=== PATIENT | female | born 1945 | race African-American/Black ===

== ENCOUNTER 2017-01-02 09:01 | Inpatient (IN) | payer OTHER ==
--- NOTE | ~2017-01-02 | DS ---
Discharge Summary [address] [address] [place]. [address] NAME: MERARY DUMONT : 49 STATUS : DIS IN PAT#: [id number] AGE: 71 ADM/REG DATE : 01/02/17 MR#: [id number] REPORT SERV DATE: 01/05/17 DICTATED BY: JR. MOON WILLIAM JOHN DATE: 01/04/17 REPORT STATUS : Draft TRANSCRIBED BY: EMILE DATE: 01/04/17 ADMISSION DATE: 01/02/2017 DISCHARGE DATE: 01/04/2017 DISCHARGE DIAGNOSES: Include: 1. Chronic obstructive pulmonary disease with mild exacerbation. 2. Diabetes mellitus type 2 without long-term insulin use with peripheral neuropathy. 3. Obesity with body mass index of 38. 4. Hypertension. 5. Anxiety and depression. 6. Hyperlipidemia. 7. Chest pain, which the patient desired no further workup for. OPERATIONS, PROCEDURES, AND TREATMENTS: Include: 1. Chest x-ray done 01/02/2017, which was negative. 2. Blood cultures x2 done 01/02/2017 that were negative. DISCHARGE MEDICATIONS: Include: 1. Lipitor 20 mg orally daily. 2. Doxycycline 100 mg orally twice a day for five days. 3. Cymbalta 60 mg orally daily. 4. Neurontin 300 mg orally three times a day. 5. Zyrtec 10 mg orally daily. 6. Losartan 50 mg orally daily. 7. Omeprazole 20 mg orally daily. 8. Spiriva HandiHaler one puff daily. 9. Triamcinolone cream daily. 10.Metformin 500 b.i.d. 11.Prednisone 40 mg daily for two days and 20 for three days, then 10 for three days, then none. 12.Pulmicort Flexhaler two puffs twice a day. 13.Albuterol metered-dose inhaler two puffs every six hours as needed. 14.Bentyl 10 mg orally four times a day as needed. 15.Mobic 15 mg orally daily. 16.Zofran 4 mg twice a day as needed. 17.Percocet 7.5/325, one tablet twice a day as needed dispensing 6. 18.Combivent metered-dose inhaler two puffs every six hours. HOSPITAL COURSE: The patient was a pleasant 71-year-old female, presented to emergency room 01/02/2017 with cough and shortness of breath. The patient said she developed cough, shortness of breath, wheezing, and tightness with breathing about three days prior to admission. She says she uses her Spiriva and albuterol, but it did not help. She had some with substernal chest pain associated with it but this had resolved. On initial exam, her temperature is 98.3, heart rate 74, blood pressure 176/75. Exam was remarkable for diffuse expiratory wheezing in all lung faustin. Chest x-ray was clear. Laboratory was largely unremarkable with multiple troponins less than 0.02. Discharge Summary [address] [place]. [address] NAME: MERARY DUMONT : 49 STATUS : DIS IN PAT#: [id number] AGE: 71 ADM/REG DATE : 01/02/17 MR#: [id number] REPORT SERV DATE: 01/05/17 DICTATED BY: JR. MOON WILLIAM JOHN DATE: 01/04/17 REPORT STATUS : Draft TRANSCRIBED BY: EMILE DATE: 01/04/17 The patient was admitted for COPD exacerbation. She was placed on IV steroids, inhaled beta agonist, inhaled steroids, and inhaled anticholinergic agents. She continued to require oxygen on 01/03/2017. On 01/04/2017, she underwent an exertional desaturation study and required no oxygen. She was weaned to oral steroids and is discharged on oral steroids, empiric doxycycline, inhaled steroid, inhaled anticholinergic, and inhaled beta agonist. Regarding the patient's chest pain, at discharge, the patient mentioned she had had a few minutes of chest pain that morning. She said this is normal for her, not unusual, it occurred at rest and had no radiation or other typical features. I discussed the possibility of having an echocardiogram and a stress test while in the hospital. The patient declined and said she would follow up with her primary care provider, Sara Lua. We discussed the risks that I could not ensure her that she did not have coronary disease nor that she would have complications up to and including heart attack or . She understood this and desired discharge. For discharge exam and laboratory, please see daily progress note. DISCHARGE DIET: ADA diet. ACTIVITY: As tolerated. This discharge took 35 minutes for patient encounter, coordination of care, and documentation. MARK/EMILE Anderson Moon Jr, MD / [id number] CC: Anderson Moon Jr, MD Tracy Dozier
--- NOTE | ~2017-01-02 | HP ---
History And Physical [address] [place]. [address] NAME: MERARY DUMONT : 49 STATUS : ADM Idris PAT#: [id number] AGE: 71 ADM/REG DATE : 01/02/17 MR#: [id number] REPORT SERV DATE: 01/02/17 DICTATED BY: ANNA REN DATE: 01/02/17 REPORT STATUS : Draft TRANSCRIBED BY: MODCortez DATE: 01/02/17 DATE OF ADMISSION: 01/02/2017 CHIEF COMPLAINT: Shortness of breath and cough. HISTORY OF PRESENT ILLNESS: The patient is a very pleasant 71-year-old female who reports about three days ago, she developed cough, shortness of breath, wheezing, and tightness with breathing. She states, she used her Spiriva and her albuterol inhaler but to no avail. She did not improve. She had some chest pain associated with it which was substernal. She is not currently having chest pain. She had no documented fevers but she did not take her temperature. She had no nausea vomiting, or diarrhea. She continues to smoke besides having an underlying diagnosis of COPD. PAST MEDICAL HISTORY: 1. COPD. 2. Diabetes mellitus. 3. Obesity. 4. Tobacco abuse. 5. Hypertension. 6. Hyperlipidemia. 7. Anxiety and depression. 8. Peripheral neuropathy. 9. Chronic back pain. 10.GERD. 11.Osteoarthritis. ALLERGIES: LIDOCAINE AND DIOVAN. SOCIAL HISTORY: She smokes one-half pack per day to 1 pack per day for the last 50 years. No alcohol. She is retired. 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 PAST SURGICAL HISTORY: She has had a hysterectomy and oophorectomy. Bilateral rotator cuff repair. FAMILY HISTORY: Her mom had COPD and of lung cancer. HOME MEDICATIONS: Reviewed and attached. REVIEW OF SYSTEMS: Ten-point review of systems obtained. Pertinent positives are already mentioned in the HPI. PHYSICAL EXAMINATION: VITAL SIGNS: Blood pressure 176/75, pulse 74, sats 97%, and temperature is 98.3. GENERAL: Obese female, in no apparent distress. HEENT: Normocephalic, atraumatic. Throat is clear. NECK: Supple. HEART: Regular rate and rhythm. History And Physical [address] [place]. [address] NAME: MERARY DUMONT : 49 STATUS : ADM Idris PAT#: [id number] AGE: 71 ADM/REG DATE : 01/02/17 MR#: [id number] REPORT SERV DATE: 01/02/17 DICTATED BY: ANNA REN DATE: 01/02/17 REPORT STATUS : Draft TRANSCRIBED BY: EMILE DATE: 01/02/17 LUNGS: She has diffuse expiratory wheezing in all lung faustin. ABDOMEN: Soft, nontender, and nondistended. EXTREMITIES: Warm and dry. Skin is intact. 2+ pulses at the feet. DATA: Chest x-ray is clear. CBC is normal. Coags are normal. Basic metabolic panel is normal. Mag and troponin are normal at 2.1 and 0.3. BNP is 69. ABG was 7.27/57/87. ASSESSMENT/PLAN: 1. COPD with exacerbation with mild respiratory acidosis. The patient actually looks fairly good clinically. I think she can go to observation status. We will treat her with O2; DuoNeb q.4 hours along with Pulmicort. We will also place her on some IV steroids and doxycycline. We will monitor her symptomatology as well as exam. Hopefully she could go home tomorrow on some p.o. steroids. We would recommend strongly that she stop smoking. I have also placed her on a nicotine patch. 2. Diabetes mellitus. We will add some sliding scale to her regimen. Continue home metformin. 3. Obesity. Needs weight loss. 4. Hypertension. We will continue her home medications; she has not had them today. Hopefully, this will assist with her blood pressure today. 5. History of anxiety and depression. Continue home medications. 6. Peripheral neuropathy. 7. Deep venous thrombosis prophylaxis. Subcutaneous Lovenox. 8. Disposition pending above. KASI/EMILE Anna Ren M.D. / [id number] CC: Anderson Moon Jr, MD
[2017-01-02 08:33] LABS: BASOPHILS 0.4 %; BASOPHILS ABSOLUTE 0.03 10/3/uL (0.0-0.16); EOSINOPHILS 4.7 %; EOSINOPHILS ABSOLUTE 0.39 10/3/uL (0.0-0.53); ER CBC TAT 0 Hrs 09 Mins; HEMATOCRIT 41.4 % (36.0-48.0); HEMOGLOBIN 13.7 g/dL (12.0-16.0); IMMATURE GRANULOCYTES 0.1 %; IMMATURE GRANULOCYTES ABSOLUTE 0.01 10/3/uL (0.0-0.11); LYMPHOCYTES 26.6 %; MANUAL DIFF NO %; MEAN CORPUS HGB CONC 33.1 g/dL (32.0-36.0); MEAN CORPUSCULAR HEMOGLOB 30.7 pg (26.0-34.0); MEAN CORPUSCULAR VOLUME 92.8 fL (80-100); MEAN PLATELET VOLUME 10.7 fL (9.2-13.0); MONOCYTES 7.2 %; NEUTROPHILS ABSOLUTE 5.05 10/3/uL (2.02-8.40); PLATELET COUNT 210 10/3/uL (150-400); RED CELL COUNT 4.46 10/6/uL (4.0-5.6); WHITE BLOOD CELLS 8.3 10/3/uL (4.5-10.5)
[2017-01-02 08:39] LABS: INTERNATIONAL NORMAL RATI 1.1 UNITS (-); PARTIAL THROMBO TIME 26.6 SEC (22.5-37.2)
[2017-01-02 08:45] LABS: BUN (BLOOD UREA NITROGEN) 8 MG/DL (6-23); CALCIUM, SERUM 8.6 MG/DL (8.5-10.4); CHEST PAIN PROFILE TAT 0 Hrs 21 Mins; CHLORIDE, SERUM 109 MMOL/L (96-112); CO2 (CARBON DIOXIDE) 31 MMOL/L (24-34); CREATININE 0.71 MG/DL (0.55-1.02); GFR AFRICAN AMERICAN 101 ML/MIN (>=60); GFR NON AFRICAN AMERICAN 87 ML/MIN (>=60); POTASSIUM, SERUM 4.4 MMOL/L (3.5-5.3); SODIUM, SERUM 144 MMOL/L (135-148); TROPONIN I 0.03 NG/ML (<0.05)
[2017-01-02 08:49] LABS: GLUCOSE, SERUM 134 MG/DL (60-99)
[2017-01-02] MEDS ORDERED: GLUCPH PO (10:33)
[2017-01-02] MEDS ORDERED: LIPITOR20 PO (10:34)
[2017-01-02] MEDS ORDERED: PROAIR HFA INH (10:34)
[2017-01-02] MEDS ORDERED: CYMBALTA60 PO (10:34)
[2017-01-02] MEDS ORDERED: NEUR300 PO (10:35)
[2017-01-02] MEDS ORDERED: MOBIC15 MG PO (10:35)
[2017-01-02] MEDS ORDERED: BENTYL10 PO (10:35)
[2017-01-02] MEDS ORDERED: COZ50 PO (10:35)
[2017-01-02] MEDS ORDERED: TRIAMCINOLONE C80 GM TOP (10:35)
[2017-01-02] MEDS ORDERED: PRILO PO (10:36)
[2017-01-02] MEDS ORDERED: SPIRIVA INH (10:36)
[2017-01-02] MEDS ORDERED: ZYRTEC ALLGY10 MG PO (10:36)
[2017-01-02] MEDS ORDERED: ZOFRAN4 PO (10:36)
[2017-01-02] MEDS ORDERED: PERCOCET 7.5/321 TAB PO (10:37)
[2017-01-02 21:12] LABS: ALLENS TEST Pos; BE (BASE EXCESS) -1.7 MEQ/L (0 +/- 2.5); CARBOXYHEMOGLOBIN 5.3 % (0-3); HCO3 (ACTUAL BICARBONATE) 26.1 MEQ/L (23-27); HEMOBLOGIN CONTENT 14.2 G/DL (12-16); INSTRUMENT SERIAL # 8087; METHEMOGLOBIN 0.2 % (0-3); O2 CONTENT 18.2 VOL% (18-24); OPERATOR ID 14904~00; PCO2 (CO2 TENSION) 57 MMHG (35-45); PO2 (O2 TENSION) 88 MMHG (79-93); SAMPLE Arterial; pH 7.28 (7.37-7.43)
[2017-01-03 02:34] LABS: BASOPHILS 0.1 %; BASOPHILS ABSOLUTE 0.01 10/3/uL (0.0-0.16); EOSINOPHILS 0 %; HEMATOCRIT 42.6 % (36.0-48.0); IMMATURE GRANULOCYTES 0.7 %; IMMATURE GRANULOCYTES ABSOLUTE 0.07 10/3/uL (0.0-0.11); LYMPHOCYTES 10.2 %; LYMPHOCYTES ABSOLUTE 1.07 10/3/uL (0.67-4.30); MEAN CORPUS HGB CONC 32.9 g/dL (32.0-36.0); MEAN CORPUSCULAR VOLUME 91.4 fL (80-100); MEAN PLATELET VOLUME 11.1 fL (9.2-13.0); MONOCYTES 1.1 %; MONOCYTES ABSOLUTE 0.12 10/3/uL (0.21-1.20); NEUTROPHILS 87.9 %; NEUTROPHILS ABSOLUTE 9.26 10/3/uL (2.02-8.40); PLATELET COUNT 237 10/3/uL (150-400); RED CELL COUNT 4.66 10/6/uL (4.0-5.6); WHITE BLOOD CELLS 10.5 10/3/uL (4.5-10.5)
[2017-01-03 02:37] LABS: MANUAL DIFF NO %
[2017-01-03 02:59] LABS: CHLORIDE, SERUM 108 MMOL/L (96-112); CREATININE 0.77 MG/DL (0.55-1.02); GFR AFRICAN AMERICAN 91 ML/MIN (>=60); GFR NON AFRICAN AMERICAN 79 ML/MIN (>=60); POTASSIUM, SERUM 4.2 MMOL/L (3.5-5.3); SODIUM, SERUM 143 MMOL/L (135-148); TROPONIN I <0.02 NG/ML (<0.05)
[2017-01-03 03:00] LABS: BUN (BLOOD UREA NITROGEN) 13 MG/DL (6-23); CO2 (CARBON DIOXIDE) 26 MMOL/L (24-34); GLUCOSE, SERUM 197 MG/DL (60-99)
[2017-01-04] MEDS ORDERED: VIBRATAB100 MG PO (12:05)
[2017-01-04] MEDS ORDERED: PULMICORT90 MCG INH (12:09)
[2017-01-04] MEDS ORDERED: PERCOCET 7.5/321 TAB PO (12:10)
== END 2017-01-04 13:15 | disposition home or self-care (01) | DRG 191 ==
LOC: ER 09:01 → CDU1 11:14
PROVIDERS: Internal Medicine; Nurse Practitioner
DX: J44.1 Chronic obstructive pulmonary disease with (acute) exacerbation (principal); E87.2 Acidosis; E11.42 Type 2 diabetes mellitus with diabetic polyneuropathy; E66.9 Obesity, unspecified; I10 Essential (primary) hypertension; F41.9 Anxiety disorder, unspecified; F32.9 Major depressive disorder, single episode, unspecified; F17.210 Nicotine dependence, cigarettes, uncomplicated; E78.5 Hyperlipidemia, unspecified; M54.9 Dorsalgia, unspecified; M19.90 Unspecified osteoarthritis, unspecified site; Z68.38 Body mass index [BMI] 38.0-38.9, adult; Z90.710 Acquired absence of both cervix and uterus
CPT/HCPCS: 36600; 71010; 80048; 82805; 82962; 83735; 83880; 84484; 85025; 85610; 85730; 87040; 87070; 87205; 93005; 94640; 96374; 99285; A9270-GY; J2930